=== PATIENT | female | born 1990 | race American Indian/Alaskan Native ===

== ENCOUNTER 2018-11-01 10:45 | Emergency (ER) | payer OTHER ==
[2018-11-01 11:00] VITALS: BP 132/81
[2018-11-01] MEDS ORDERED: DECADRON IM ONE (11:13)
--- NOTE | 2018-11-01 11:13 | Emergency Department Report ---
ED Lower Extremity HPI - General Chief Complaint: Extremity Injury, Lower Stated Complaint: L KNEE PAIN Time Seen by Provider: 11/01/18 11:09 Source: patient Mode of arrival: Ambulatory Limitations: No Limitations - History of Present Illness Initial Comments: 28 YO OBESE AA FEMALE COMES TO ER WITH L KNEE PAIN P CLEANING OVEN AT WORK. SHE WORKS [employer] AND SINCE SHE CLEANED THE OVEN SHE HAS HAD KNEE SWELLING AND PAIN MD Complaint: knee injury -: Sudden, days(s) Injury: Knee: Left Place: work Severity: mild Improves With: nothing Worsens With: movement Context: other (KNEELING ON FLOOR) - Related Data Previous Rx's Medication Instructions Recorded Last Taken Type Ibuprofen [Motrin] 800 mg PO Q8HR PRN #20 tablet 11/01/18 Unknown Rx Allergies Allergy/AdvReac Type Severity Reaction Status Date / Time Penicillins Allergy Unknown Verified 11/01/18 10:52 ED Review of Systems ROS: Stated complaint: L KNEE PAIN Other details as noted in HPI Comment: All other systems reviewed and negative Constitutional: denies: chills Eyes: denies: eye pain ENT: denies: ear pain Respiratory: denies: cough Cardiovascular: denies: palpitations Endocrine: denies: intolerance to cold Gastrointestinal: denies: abdominal pain Genitourinary: denies: dysuria Musculoskeletal: as per HPI Skin: denies: rash Neurological: denies: headache Psychiatric: denies: anxiety Hematological/Lymphatic: denies: easy bleeding ED Past Medical Hx - Past Medical History Previous Medical History?: No - Surgical History Past Surgical History?: No - Family History Family history: no significant - Social History Smoking Status: Never Smoker Substance Use Type: Non Opiate Pain - Medications Home Medications: Home Medications Medication Instructions Recorded Confirmed Last Taken Type Ibuprofen [Motrin] 800 mg PO Q8HR PRN #20 tablet 11/01/18 Unknown Rx ED Physical Exam - General Limitations: No Limitations General appearance: alert, in no apparent distress - Head Head exam: Present: atraumatic, normocephalic - Eye Eye exam: Present: normal appearance, PERRL - ENT ENT exam: Present: normal exam, mucous membranes moist - Neck Neck exam: Present: normal inspection - Respiratory Respiratory exam: Present: normal lung sounds bilaterally - Cardiovascular Cardiovascular Exam: Present: regular rate, normal rhythm - GI/Abdominal GI/Abdominal exam: Present: soft, normal bowel sounds - Rectal Rectal exam: Present: deferred - Extremities Exam Extremities exam: Present: normal inspection, full ROM - Expanded Lower Extremity Exam Left Upper Leg exam: Present: normal inspection Knee exam: Present: full ROM, swelling (MILD MEDIAL SWELLING. NO EFFUSION. ), ecchymosis, full knee extension. Absent: abrasion, laceration, deformity, crepidus, dislocation, erythema, effusion, pain w/ pronation/supination, posterior draw sign, pain/laxity with valgus, pain/laxity with varus Lower Leg exam: Present: normal inspection Ankle exam: Present: normal inspection Foot/Toe exam: Present: normal inspection Neuro vascular tendon exam: Present: no vascular compromise. Absent: pulse deficit, abnormal cap refill, motor deficit, sensory deficit, tendon deficit ED Course Vital Signs 11/01/18 10:57 Temperature 98 F Pulse Rate 78 Respiratory 18 Rate Blood Pressure 132/81 O2 Sat by Pulse 99 Oximetry ED Lower Extremity MDM - Medical Decision Making KNEELING ONLY KNEE NOW W KNEE PAIN NO EFFUSION AMBULATORY MEDICATED HERE AND DC HOME WITH ORTHO FOLLOW UP Vital Signs 11/01/18 10:57 Temperature 98 F Pulse Rate 78 Respiratory 18 Rate Blood Pressure 132/81 O2 Sat by Pulse 99 Oximetry Critical care attestation.: If time is entered above; I have spent that time in minutes in the direct care of this critically ill patient, excluding procedure time. ED Disposition Clinical Impression: Knee contusion Disposition: DC-01 TO HOME OR SELFCARE Is pt being admited?: No Does the pt Need Aspirin: No Condition: Stable Instructions: Knee Pain (ED) Additional Instructions: ICE REST ELEVATE MOTRIN FOR PAIN OR DISCOMFORT FOLLOW UP WITH ORTHO MD WE DISCUSSED IF PERSISTS Prescriptions: Ibuprofen [Motrin] 800 mg PO Q8HR PRN #20 tablet PRN Reason: Pain , Severe (7-10) Referrals: SAMIRA LIN MD [Staff Physician] - 3-5 Days Time of Disposition: 11:18
== END 2018-11-01 11:35 | disposition home or self-care (01) ==
LOC: ED 10:45
DX: S80.02XA Contusion of left knee, initial encounter (principal); Z88.0 Allergy status to penicillin; W01.198A Fall on same level from slipping, tripping and stumbling with subsequent striking against other object, initial encounter; Y93.E9 Activity, other interior property and clothing maintenance; Y92.098 Other place in other non-institutional residence as the place of occurrence of the external cause; Y99.8 Other external cause status
CPT/HCPCS: 96372; 99282; J1100